=== PATIENT | male | born 1985 | race Caucasian/White ===

== ENCOUNTER 2018-01-14 12:32 | Emergency (ER) | payer OTHER, BC ==
[~2018-01-14] VITALS: Ht 182.9 cm; Wt 72.6 kg
== END 2018-01-14 13:35 | disposition home or self-care (01) ==
LOC: ED 12:32
DX: S01.21XA Laceration without foreign body of nose, initial encounter (principal); W22.8XXA Striking against or struck by other objects, initial encounter; Y99.0 Civilian activity done for income or pay
CPT/HCPCS: 70450; 90471; 90715; 99283